=== PATIENT | female | born 1955 | race African-American/Black ===

== ENCOUNTER 2018-03-31 05:27 | Emergency (ER) | payer OTHER ==
[2018-03-31] MEDS: KETOROLAC 60 MG/2 ML INJ. IM (07:07)
[2018-03-31 07:16] LABS: ADD MAN DIFF? NO
[2018-03-31 07:21] LABS: BASO % 0 % (0-3); EOS # 0.2 x10^3/uL (0.0-0.7); EOS % 2 % (0-3); HEMATOCRIT 33.3 % (36.0-47.0); HEMOGLOBIN 11.3 g/dL (12.0-15.5); LYMPH # 2.2 x10^3/uL (1.0-4.8); LYMPH % 30 % (24-48); MEAN CORPUSCULAR HEMOGLOBIN 32 pg (25-35); MEAN CORPUSCULAR HGB CONC 34 g/dL (31-37); MEAN CORPUSCULAR VOLUME 95 fL (79-100); MONO # 0.5 x10^3/uL (0.0-1.1); MONO % 7 % (0-9); NEUT # 4.4 x10^3uL (1.8-7.7); NEUT % 61 % (31-73); PLATELET COUNT 224 x10^3/uL (140-400); RED CELL DISTRIBUTION WIDTH 13.3 % (11.5-14.5); WHITE BLOOD COUNT 7.2 x10^3/uL (4.0-11.0)
[2018-03-31 07:54] LABS: ANION GAP 9 (6-14); BLOOD UREA NITROGEN 13 mg/dL (7-20); BUN/CREATININE RATIO 14 (6-20); CARBON DIOXIDE 26 mmol/L (21-32); CHLORIDE 106 mmol/L (98-107); CREATININE 0.9 mg/dL (0.6-1.0); GFR 76.5; GLUCOSE 122 mg/dL (70-99); POTASSIUM 3.9 mmol/L (3.5-5.1); SODIUM 141 mmol/L (136-145)
[2018-03-31 08:00] LABS: ALBUMIN 2.9 g/dL (3.4-5.0); ALBUMIN/GLOBULIN RATIO 0.8 (1.0-1.7); ALK PHOS 106 U/L (46-116); ALT (SGPT) 11 U/L (14-59); AST (SGOT) 5 U/L (15-37); TOTAL BILIRUBIN 0.3 mg/dL (0.2-1.0); TOTAL PROTEIN 6.5 g/dL (6.4-8.2)
[2018-03-31] MEDS: HYDROcodone/APAP 5/325MG 1 TAB TABLET PO (08:42)
[2018-03-31 11:15] LABS: BILIRUBIN,URINE NEGATIVE (NEG); CLARITY,URINE CLEAR; COLOR,URINE YELLOW; GLUCOSE,URINE NEGATIVE (NEG); NITRITE,URINE NEGATIVE (NEG); PH,URINE 5.5; PROTEIN,URINE NEGATIVE (NEG-TRACE); UROBILINOGEN,URINE 0.2 mg/dL (0.2 mg/dL)
[2018-03-31 11:22] LABS: BACTERIA,URINE FEW /HPF (0-FEW); HYALINE CASTS, URINE OCCASIONAL /HPF; RBC,URINE RARE /HPF (0-2); SQUAMOUS EPITHELIAL CELL,UR FEW /LPF
== END 2018-03-31 13:36 | disposition home or self-care (01) ==
LOC: ER 05:27
DX: M54.5 Low back pain (principal); E11.9 Type 2 diabetes mellitus without complications; G89.29 Other chronic pain; I10 Essential (primary) hypertension; M10.9 Gout, unspecified; M19.90 Unspecified osteoarthritis, unspecified site; Z88.0 Allergy status to penicillin; W18.39XA Other fall on same level, initial encounter; Y93.E1 Activity, personal bathing and showering; Y99.8 Other external cause status; Y92.89 Other specified places as the place of occurrence of the external cause
CPT/HCPCS: 36415; 70450; 72100; 80053; 81001; 85025; 87086; 96372; 99285-25; J1885; J2060

== ENCOUNTER 2018-08-22 01:58 | Emergency (ER) | payer OTHER ==
[~2018-08-22] VITALS: Ht 165.1 cm; Wt 112.5 kg
[~2018-08-22 01:58] MED LIST: ALLO100T PO; HYDR-2766 PO; HYDR-971 PO; LOSA100T7 PO; METF10007 PO; NIFE60TA12 PO; PRED-220 PO; PRED50TA PO; PREG50CA PO; PROAIR HFA8.5 GM INH; RANI150C PO; SITA1TAB7 PO; SULF1TAB24 PO; TOLT4CAP12 PO
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
[2018-08-22 02:34] LABS: BASO # 0.1 x10^3/uL (0.0-0.2); BASO % 1 % (0-3); EOS # 0.1 x10^3/uL (0.0-0.7); EOS % 1 % (0-3); HEMATOCRIT 35.3 % (36.0-47.0); HEMOGLOBIN 12.2 g/dL (12.0-15.5); LYMPH # 2.3 x10^3/uL (1.0-4.8); LYMPH % 23 % (24-48); MEAN CORPUSCULAR HEMOGLOBIN 33 pg (25-35); MEAN CORPUSCULAR HGB CONC 35 g/dL (31-37); MEAN CORPUSCULAR VOLUME 96 fL (79-100); MONO # 0.7 x10^3/uL (0.0-1.1); MONO % 7 % (0-9); NEUT # 6.7 x10^3uL (1.8-7.7); NEUT % 68 % (31-73); PLATELET COUNT 221 x10^3/uL (140-400); RED BLOOD COUNT 3.67 x10^6/uL (3.50-5.40); RED CELL DISTRIBUTION WIDTH 13.5 % (11.5-14.5); WHITE BLOOD COUNT 9.9 x10^3/uL (4.0-11.0)
[2018-08-22 02:41] LABS: CALCIUM 9.5 mg/dL (8.5-10.1); CREATININE 1.2 mg/dL (0.6-1.0); GFR 54.9; POTASSIUM 3.7 mmol/L (3.5-5.1)
[2018-08-22 02:47] LABS: ALBUMIN 3.2 g/dL (3.4-5.0); ALBUMIN/GLOBULIN RATIO 0.9 (1.0-1.7); TOTAL BILIRUBIN 0.7 mg/dL (0.2-1.0); TOTAL PROTEIN 6.8 g/dL (6.4-8.2)
[2018-08-22 02:58] LABS: CREATINE KINASE 36 U/L (26-192)
[2018-08-22] MEDS: KETOROLAC 30 MG/ML VIAL. IV ONE (03:13)
[2018-08-22] MEDS ORDERED: DICL50TA4 PO (05:03)
[2018-08-22 05:34] VITALS: BP 134/76
--- NOTE | 2018-08-22 06:28 | EKG ---
[facility] [address] [place] [address] Test Date: 2018-08-22 Test Time: 02:44:46 Pat Name: NAVARRO KING Department: Room: Gender: F Licensing Representative: : [id number] Requested By: JARRELL CASTANO Order Number: [id number] Reading MD: Measurements Intervals [place] Rate: 80 P: 90 CT: 192 QRS: 24 QRSD: 76 T: 74 QT: 372 QTc: 433 Interpretive Statements SINUS RHYTHM ATRIAL PREMATURE COMPLEX(ES) NO SPECIFIC ECG ABNORMALITIES RI6.01 No previous ECG available for comparison
--- NOTE | 2018-08-22 08:09 | RAD ---
AP and Lateral Views of the Chest 08/22/2018 2:39 AM Indication: COUGH Comparison: None Findings: Linear consolidation is seen in the bilateral lung bases. The appearance suggests bilateral partial lower lobe atelectasis. No pneumothorax or pleural effusion is seen. Heart size is normal. The bony thorax is grossly intact. Thoracic spine poorly visualized on lateral view. IMPRESSION: Bilateral lower lobe partial atelectasis Electronically signed by: Cesario Joshi MD (08/22/2018 8:05 AM) [id number]
--- NOTE | 2018-08-22 08:12 | RAD ---
Right shoulder, 3 views, 08/22/2018: HISTORY: Shoulder pain, injury No fracture or dislocation is identified. There is mild degenerative change at the AC joint and at rotator cuff insertion sites on the greater tuberosity. There is mild streaky atelectasis in the right lung base. IMPRESSION: No acute bony abnormality is detected. Electronically signed by: Irineo Brown MD (08/22/2018 8:08 AM) [place]
== END 2018-08-22 05:35 | disposition home or self-care (01) ==
LOC: ER 01:58
DX: S40.011A Contusion of right shoulder, initial encounter (principal); S20.212A Contusion of left front wall of thorax, initial encounter; S20.211A Contusion of right front wall of thorax, initial encounter; J98.11 Atelectasis; E11.9 Type 2 diabetes mellitus without complications; I10 Essential (primary) hypertension; M10.9 Gout, unspecified; Z88.0 Allergy status to penicillin; Y04.8XXA Assault by other bodily force, initial encounter; Y93.89 Activity, other specified; Y92.89 Other specified places as the place of occurrence of the external cause; Y99.8 Other external cause status
CPT/HCPCS: 36415; 71046; 73030; 80053; 82553; 83690; 84484; 85025; 93005; 96374; 99285; J1885

== ENCOUNTER → 2019-02-06 | Outpatient (CLI) | payer OTHER ==
[~2019-02-06] MED LIST changes: +ALBU2.5V8 INH; +DICL50TA4 PO; -HYDR-2766 PO; +HYDR-2769 PO; +HYDR-3164 PO; -HYDR-971 PO; +LOSA100T14 PO; -LOSA100T7 PO; -PROAIR HFA8.5 GM INH
[2019-02-06 15:49] LABS: BASO # 0.1 x10^3/uL (0.0-0.2); BASO % 1 % (0-3); EOS % 1 % (0-3); HEMATOCRIT 39.9 % (36.0-47.0); HEMOGLOBIN 12.9 g/dL (12.0-15.5); LYMPH % 29 % (24-48); MEAN CORPUSCULAR HEMOGLOBIN 31 pg (25-35); MEAN CORPUSCULAR HGB CONC 32 g/dL (31-37); MEAN CORPUSCULAR VOLUME 96 fL (79-100); MONO # 0.4 x10^3/uL (0.0-1.1); MONO % 4 % (0-9); NEUT # 6.7 x10^3uL (1.8-7.7); NEUT % 65 % (31-73); PLATELET COUNT 234 x10^3/uL (140-400); RED BLOOD COUNT 4.15 x10^6/uL (3.50-5.40); WHITE BLOOD COUNT 10.3 x10^3/uL (4.0-11.0)
== END | disposition home or self-care (01) ==
LOC: LAB 15:18
PROVIDERS: ATTEND Physical Medicine & Rehabilitation
DX: M25.572 Pain in left ankle and joints of left foot (principal)
CPT/HCPCS: 36415; 84550; 85025; 85651